=== PATIENT | male | born 1980 | race Asian ===

== ENCOUNTER 2019-04-29 11:08 | Emergency (ER) | payer MEDICAID ==
[~2019-04-29] VITALS: Ht 175.3 cm; Wt 59.0 kg
--- NOTE | 2019-04-29 11:29 | NUR ---
Feet were soaked in warm water & hospital-grade soap, pending MD evaluation. Clean donated clothes provided. Message was left for long term care social worker Jacob to come and see this patient.
--- NOTE | 2019-04-29 11:49 | NUR ---
Patient is resting comfortably on gurney with eyes closed. PATIENT IS PAIN FREE AT THIS TIME.
--- NOTE | 2019-04-29 11:55 | NUR ---
Patient is eating hot lunch tray with good appetite, NAD.
[2019-04-29] MEDS ORDERED: NAPROXEN 500 MG TABLET PO ONE (12:15)
[2019-04-29] MEDS ORDERED: NAPROXEN 500 MG TABLET ONE (12:21)
--- NOTE | 2019-04-29 12:29 | NUR ---
Patient refused social media marketing manager and offer of fpc placement at this time. Patient was given written and verbal discharge instructions. Patient verbalizes understanding & compliance of instructions. Patient is ambulatory. Patient was given a list of available shelters in surrounding area. Patient also wanted crutches. Crutches dispensed. Pt was instructed on proper use of crutches. Patient was able to demonstrate correct use of crutches.
== END 2019-04-29 12:41 | disposition home or self-care (01) ==
LOC: ER 11:08
DX: S90.822A Blister (nonthermal), left foot, initial encounter (principal); S90.821A Blister (nonthermal), right foot, initial encounter; B35.3 Tinea pedis; M79.10 Myalgia, unspecified site; J45.909 Unspecified asthma, uncomplicated; F32.9 Major depressive disorder, single episode, unspecified; F41.9 Anxiety disorder, unspecified; F17.290 Nicotine dependence, other tobacco product, uncomplicated; Z88.5 Allergy status to narcotic agent; Z88.8 Allergy status to other drugs, medicaments and biological substances; Z59.0 Homelessness; X58.XXXA Exposure to other specified factors, initial encounter; Y93.89 Activity, other specified; Y92.89 Other specified places as the place of occurrence of the external cause; Y99.8 Other external cause status
CPT/HCPCS: 71045; A4663

== ENCOUNTER 2019-04-30 12:18 | Emergency (ER) | payer MEDICAID ==
[~2019-04-30] VITALS: Ht 167.6 cm; Wt 59.0 kg
--- NOTE | 2019-04-30 12:26 | NUR ---
Dr Etienne at the bedside for MSE.
[2019-04-30] MEDS ORDERED: OLANZAPINE 5 MG TABLET PO ONE (12:30)
[2019-04-30] MEDS ORDERED: diphenhydrAMINE 50 MG/1 ML VIAL IM ONE (12:30)
[2019-04-30] MEDS ORDERED: LORAZEPAM 2 MG/1 ML VIAL IM ONE (12:30)
[2019-04-30] MEDS ORDERED: HALOPERIDOL LACTATE 5 MG/1 ML VIAL IM ONE (12:30)
[2019-04-30] MEDS ORDERED: OLANZAPINE 5 MG TABLET ONE ×2 (12:31→12:39)
--- NOTE | 2019-04-30 12:40 | NUR ---
PD officer Tulio placed pt on 5150 hold for DTS. Handcuffs was taken off by PD officers. Pt is cooperative at this time.
[2019-04-30] MEDS ORDERED: HALOPERIDOL LACTATE 5 MG/1 ML VIAL ONE (12:41)
[2019-04-30] MEDS ORDERED: diphenhydrAMINE 50 MG/1 ML VIAL ONE (12:41)
[2019-04-30] MEDS ORDERED: LORAZEPAM 2 MG/1 ML VIAL ONE (12:42)
--- NOTE | 2019-04-30 13:09 | NUR ---
Patient is resting comfortably in bed with eyes closed, NAD noted.
[2019-04-30 13:11] LABS: ALANINE AMINOTRANSFERASE 207 U/L (16-63); ALKALINE PHOSPHATASE 37 U/L (50-136); ASPARTATE AMINOTRANSFERASE 247 U/L (15-37); BASOPHILS # (AUTO) 0.1 K/uL (0.0-8.0); BASOPHILS % (AUTO) 1.3 % (0.0-2.0); BILIRUBIN,DIRECT 0.4 mg/dL (0.0-0.2); BILIRUBIN,TOTAL 1.1 mg/dL (0.2-1.0); CARBON DIOXIDE 24 mmol/L (21-32); CHLORIDE 108 mmol/L (98-107); EOSINOPHILS # (AUTO) 0.2 K/uL (0.0-0.7); EOSINOPHILS % (AUTO) 2.9 % (0.0-7.0); GLUCOSE 95 mg/dL (74-106); HEMATOCRIT 41.2 % (36.7-47.1); HEMOGLOBIN 13.9 g/dL (12.5-16.3); LYMPHOCYTES # (AUTO) 1.6 K/uL (20.0-40.0); LYMPHOCYTES % (AUTO) 23.2 % (20.5-51.5); MEAN CORPUSCULAR HEMOGLOBIN 30.1 uug (23.8-33.4); MEAN CORPUSCULAR HGB CONC 34 g/dL (32.5-36.3); MEAN CORPUSCULAR VOLUME 89.4 fL (73.0-96.2); MONOCYTES # (AUTO) 0.5 K/uL (2.0-10.0); MONOCYTES % (AUTO) 7.3 % (0.0-11.0); NEUTROPHILS # (AUTO) 4.4 K/uL (1.8-8.9); NEUTROPHILS % (AUTO) 65.3 % (38.5-71.5); PLATELET COUNT (AUTO) 238 K/uL (152-348); TOTAL PROTEIN, SERUM 7.5 g/dL (6.4-8.2); UREA NITROGEN, BLOOD 23 mg/dL (7-18); WHITE BLOOD COUNT (AUTO) 6.7 K/uL (3.6-10.2)
[2019-04-30 13:18] LABS: ACETAMINOPHEN < 2.0 ug/mL (10-30); ETHANOL < 3 MG/DL (0-0)
--- NOTE | 2019-04-30 18:33 | NUR ---
called art for psych eval.
--- NOTE | 2019-04-30 19:09 | NUR ---
HAND OFF AND SBAR RECEIVED FROM OUTGOING DAY SHIFT RN PT NAD ASLEEP BUT EASILY ROUSED [id number] AT BEDSIDE
[2019-04-30 21:23] LABS: *BILIRUBIN,URIN 1+ (NEGATIVE); *KETONES,URINE 1+ (NEGATIVE); LEUKOCYTE ESTERASE ,URINE NEGATIVE (NEGATIVE); NITRITE, URINE NEGATIVE (NEGATIVE); UGLUCOSE NEGATIVE (NEGATIVE)
--- NOTE | 2019-04-30 21:23 | NUR ---
EUGENE SMITHW ON SITE FOR PSYCHE EVAL
[2019-04-30 21:37] LABS: *AMPHETAMINE, URINE POSITIVE (NEGATIVE); *BARBITURATE, URINE NEGATIVE (NEGATIVE); *CANNABINOID, URINE POSITIVE (NEGATIVE); *COCCAINE, URINE NEGATIVE (NEGATIVE); *OPIATE, URINE NEGATIVE (NEGATIVE); *PHENCYCLIDINE SCREEN,URINE NEGATIVE (NEGATIVE)
--- NOTE | 2019-04-30 21:40 | NUR ---
IN/OUT CATHETER NOT NEEDED. PT ABLE TO VOID FREELY ABLE TO PROVIDE NEEDED URINE SAMPLE
[2019-04-30 21:45] LABS: *BLOOD, URINE TRACE (NEGATIVE); *CLARITY,URINE SLIGHTLY HAZY (CLEAR); *COLOR,URINE AMBER (YELLOW)
[2019-04-30 21:48] LABS: BACTERIA,URINE FEW /HPF (NONE SEEN); MUCUS,URINE MANY /LPF (0-FEW); SQUAMOUS EPITHELIAL CELL,UR FEW /HPF (NONE SEEN); WBC,URINE 0-3 /HPF (0-3)
--- NOTE | 2019-04-30 22:30 | NUR ---
PER [facility] VIRTUALIZATION CONSULTANT: TRIAL TO COORDINATE PLACEMENT AT [facility]. PENDING RESPONSE OTHER OPTION: FORGER HELPER WILL COORDINATE PLACEMENT TOMORROW MORNING PT IS ABLE TO TOLERATE 100% OF MEAL ABLE TO DRINK PT NAD MONITORED ACCORDINGLY SIDERAILSX2 UP, BED AT LOWEST POSITION
[2019-04-30] MEDS ORDERED: IBUPROFEN 800 MG TABLET ONE (22:43)
[2019-04-30] MEDS ORDERED: IBUPROFEN 800 MG TABLET PO ONE (23:00)
--- NOTE | 2019-04-30 23:50 | NUR ---
PT IS ASLEEP NAD AND ON LEFT LATERAL RECUMBENT 1ON1 SITTER AT BEDSIDE SIDERAILSX2 UP, BED AT LOWEST POSITION
--- NOTE | 2019-05-01 02:59 | NUR ---
pt nad, ASLEEP BUT ROUSABLE HR AT 51 NO OTHER SYMPTOMS
--- NOTE | 2019-05-01 03:40 | NUR ---
ABLE TO TALK WITH EMILIA ([facility]) CONFIRMING ADDENDUM OF YANY +WELL LOGGER DISCONTINUING 5150 HOLD UPON ARRIVAL AT [facility] PT WILL BE ADMITTED. WAITING FOR CALL BACK TO RECEIVE REPORT TRANSFER FORM SIGNED BY YANY Addendum: 05/01/19 at 0352 by ELVIRA EMILIA CALL BACK NUMBER [phone]
--- NOTE | 2019-05-01 04:40 | NUR ---
PT ASLEEP BUT EASILY ROUSED DENIES SI/HI CONCERNS AT THIS TIME ABLE TO TOLERATE FOOD AND DRINK 100% HR AT 51-58 (ASLEEP) BP AT LEFT ARM 112/63 SPO2 99% SYBIL ([facility]) CALLED TO CONFIRM IF PT IS STILL UNDER ER OBSERVATION HERE AT [place] GAVE NUMBER TO CALL FOR REPORT: [phone] EXT [phone] (EMILIA)
--- NOTE | 2019-05-01 05:09 | NUR ---
RN CALLED EMILIA ([facility]) [phone] EXT [phone] STATES SHE IS STILL WAITING FOR INTAKE FORMS AND RECEIVING MD STATES SHE WILL CALL [facility] BACK TO RECEIVE REPORT AND PROVIDE TRANSFER INFORMATION
--- NOTE | 2019-05-01 05:25 | NUR ---
HAND OFF AND SBAR REPORT GIVEN TO EMILIA RECEIVING MD DR VALENTINE ROOM 630A CALLED FOR [facility] BLS TRANSPORT ETA: [id number] TRIP NUMBER: [id number]
--- NOTE | 2019-05-01 06:49 | NUR ---
1ON1 SITTER AT BEDSIDE PT NAD, ASLEEP BUT EASILY ROUSED HAND OFF AND SBAR GIVEN TO INCOMING DAY SHIFT RN BEDSIDE RAILSX2 UP, BED AT LOWEST POSITION
--- NOTE | 2019-05-01 07:00 | NUR ---
RECIEVED PT IN BED, RESTING.
--- NOTE | 2019-05-01 07:20 | NUR ---
PT AMBULATES TO RESTROOM WITH ASSISSTANCE.
--- NOTE | 2019-05-01 09:00 | NUR ---
MARY GRACE AT BEDSIDE TO TRANSFER THE PT. CALLED [facility] AND WAS TRANSFERED TO [facility] N[facility]SE TO LET THEM KNOW THAT THE PT IS ON THE WAY, BUT CVICU NURSE DID NOT PHONE OPERATOR THE PHONE.
== END 2019-05-01 09:18 | disposition short-term general hospital (02) ==
LOC: ER 12:18
DX: R45.851 Suicidal ideations (principal); R45.850 Homicidal ideations; F29 Unspecified psychosis not due to a substance or known physiological condition; J45.909 Unspecified asthma, uncomplicated; F32.9 Major depressive disorder, single episode, unspecified; F41.9 Anxiety disorder, unspecified; F17.200 Nicotine dependence, unspecified, uncomplicated; F15.10 Other stimulant abuse, uncomplicated; Z88.8 Allergy status to other drugs, medicaments and biological substances; Z88.5 Allergy status to narcotic agent; Z59.0 Homelessness
CPT/HCPCS: 36415; 80048; 80076; 80307; 81000; 81001; 85025; 93005; 99285; G0480 ×2; G0481; A4663; J1200; J1630; J2060